=== PATIENT | female | born 1990 | race Two or more races ===

== ENCOUNTER 2018-01-26 16:53 | Emergency (ER) | payer OTHER ==
[2018-01-26 17:05] VITALS: BP 115/70
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
[2018-01-26] MEDS ORDERED: KETOROLAC TROMETHAMINE INJ/PF 30 MG/1 ML SDV IM ONE (19:16)
== END 2018-01-26 19:26 | disposition home or self-care (01) ==
LOC: ER 16:53
DX: R07.89 Other chest pain (principal); V46.5XXA Car driver injured in collision with other nonmotor vehicle in traffic accident, initial encounter
CPT/HCPCS: 99284; 96372; 71046; J1885